=== PATIENT | male | born 1950 | race Caucasian/White ===

== ENCOUNTER 2017-05-17 05:15 | Emergency (ER) | payer SELFPAY ==
[~2017-05-17] VITALS: Ht 167.6 cm; Wt 101.8 kg
[2017-05-17 05:26] VITALS: Ht 167.6 cm; Wt 101.8 kg
[2017-05-17] MEDS ORDERED: predniSONE 20 MG TAB PO STA (07:29)
[2017-05-17] MEDS ORDERED: ALBUTEROL 0.083% (NEB) 2.5 MG/3 ML AMP NEB STA (07:29)
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
[2017-05-17] MEDS ORDERED: PRED20TA PO (09:09)
[2017-05-17] MEDS ORDERED: ALBU8.5H3 INH (09:09)
[2017-05-17 10:16] VITALS: BP 122/63; PULSE 101; RESP 20; TEMP 99.3
== END 2017-05-17 10:17 | disposition home or self-care (01) ==
LOC: E/R 05:15
DX: T59.811A Toxic effect of smoke, accidental (unintentional), initial encounter (principal); J45.901 Unspecified asthma with (acute) exacerbation; I10 Essential (primary) hypertension
CPT/HCPCS: 94664; 99284; J7512

== ENCOUNTER 2017-06-04 20:37 | Emergency (ER) | END 2017-06-04 21:55 | disposition home or self-care (01) ==